=== PATIENT | female | born 1970 | race Hispanic/Latino ===

== ENCOUNTER 2021-10-02 18:08 | Emergency (ER) | payer MEDICARE ==
[2021-10-03 05:06] VITALS: BP 138/65
== END 2021-10-03 05:59 | disposition home or self-care (01) ==
LOC: ED 18:08
DX: R11.0 Nausea (principal); R53.1 Weakness; Z53.21 Procedure and treatment not carried out due to patient leaving prior to being seen by health care provider
CPT/HCPCS: 99282

== ENCOUNTER 2021-10-05 15:08 | Emergency (ER) | payer MEDICARE ==
[2021-10-05 17:00] VITALS: BP 128/94
[2021-10-05] MEDS ORDERED: IPRATROPIUM/ALBUTEROL SULFATE 3 ML AMPUL.NEB IH ONE (17:22)
--- NOTE | 2021-10-05 17:48 | XRay Report ---
CHEST 2 VIEWS INDICATION / CLINICAL INFORMATION: SOB. COMPARISON: None available. FINDINGS: SUPPORT DEVICES: None. HEART / MEDIASTINUM: No significant abnormality. LUNGS / PLEURA: No significant pulmonary or pleural abnormality. No pneumothorax. ADDITIONAL FINDINGS: Thoracic spinal CORD stimulator noted. IMPRESSION: 1. No acute findings. Signer Name: Eitan Wilcox MD Signed: 10/05/2021 5:44 PM Workstation Name: [id number]
--- NOTE | 2021-10-05 21:17 | Emergency Department Report ---
ED General Adult HPI - General Chief complaint: Dyspnea/Respdistress Stated complaint: SOB Time Seen by Provider: 10/05/21 21:07 Source: patient Mode of arrival: Ambulatory Limitations: No Limitations - History of Present Illness Initial comments: reports continued cough and congestion but has not been able to use the albuterol due to her machine breaking. C/o continued productive cough. no chest pain or dizziness. no lower extremity swelling. does experience bladder leakage with coughing spells. -: Gradual Severity scale (0 -10): 0 Associated Symptoms: cough. denies: confusion, fever/chills, loss of appetite, malaise, nausea/vomiting, shortness of breath, syncope, weakness - Related Data Previous Rx's Medication Instructions Recorded Last Taken Type ALBUTEROL NEB's [Proventil 0.083% 2.5 mg IH TID PRN #30 neb 10/03/21 Unknown Rx NEBS] Azithromycin [Zithromax] 500 mg PO QDAY #5 tablet 10/03/21 Unknown Rx Benzonatate [Tessalon Perles] 100 mg PO Q8HR #20 capsule 10/03/21 Unknown Rx Albuterol Mdi (or & Nicu Only) 2 puff IH QID PRN #8.5 gram 10/05/21 Unknown Rx [ProAir HFA Inhaler] predniSONE [Deltasone] 20 mg PO QDAY #5 tab 10/05/21 Unknown Rx Allergies Allergy/AdvReac Type Severity Reaction Status Date / Time No Known Allergies Allergy Verified 10/05/21 17:00 ED Review of Systems ROS: Stated complaint: SOB Other details as noted in HPI Comment: All other systems reviewed and negative ED Past Medical Hx - Medications Home Medications: Home Medications Medication Instructions Recorded Confirmed Last Taken Type ALBUTEROL NEB's [Proventil 0.083% 2.5 mg IH TID PRN #30 neb 10/03/21 Unknown Rx NEBS] Azithromycin [Zithromax] 500 mg PO QDAY #5 tablet 10/03/21 Unknown Rx Benzonatate [Tessalon Perles] 100 mg PO Q8HR #20 capsule 10/03/21 Unknown Rx Albuterol Mdi (or & Nicu Only) 2 puff IH QID PRN #8.5 gram 10/05/21 Unknown Rx [ProAir HFA Inhaler] predniSONE [Deltasone] 20 mg PO QDAY #5 tab 10/05/21 Unknown Rx ED Physical Exam - General Limitations: No Limitations General appearance: alert, in no apparent distress - Head Head exam: Present: atraumatic, normocephalic - Eye Eye exam: Present: normal appearance, PERRL, EOMI - ENT ENT exam: Present: normal exam, normal orophraynx, mucous membranes moist - Neck Neck exam: Present: normal inspection - Respiratory Respiratory exam: Present: normal lung sounds bilaterally. Absent: respiratory distress - Cardiovascular Cardiovascular Exam: Present: regular rate, normal rhythm. Absent: systolic murmur, diastolic murmur, rubs, gallop - GI/Abdominal GI/Abdominal exam: Present: soft, normal bowel sounds - Extremities Exam Extremities exam: Present: normal inspection - Back Exam Back exam: Present: normal inspection - Neurological Exam Neurological exam: Present: alert, oriented X3 - Psychiatric Psychiatric exam: Present: normal affect, normal mood - Skin Skin exam: Present: warm, dry, intact, normal color. Absent: rash ED Course Vital Signs 10/05/21 16:57 Temperature 98.5 F Pulse Rate 79 Respiratory 20 Rate Blood Pressure 128/94 [Right] O2 Sat by Pulse 97 Oximetry Critical care attestation.: If time is entered above; I have spent that time in minutes in the direct care of this critically ill patient, excluding procedure time. ED Disposition Disposition: 01 HOME / SELF CARE / HOMELESS Condition: Stable Instructions: Cool Mist Vaporizer, Cough, Adult, [id number], How to Use a Dry Powder Inhaler, [id number], Acute Bronchitis, Adult, Chronic Bronchitis (ED) Prescriptions: predniSONE [Deltasone] 20 mg PO QDAY #5 tab Albuterol Mdi (or & Nicu Only) [ProAir HFA Inhaler] 2 puff IH QID PRN #8.5 gram PRN Reason: Shortness Of Breath Referrals: [facility] [Provider Group] - 3-5 Days [facility] [Outside] - 3-5 Days
--- NOTE | 2021-10-06 10:36 | Electrocardiograph Report ---
[facility] Test Date: 2021-10-05 Test Time: 17:02:45 Pat Name: HARPER DUNCAN Department: Room: Gender: F [employer] Information Clerk: WES : 1970 Requested By: KARLA WELLER Order Number: [id number] Reading MD: Jony Prieto Measurements Intervals [place] Rate: 63 P: 29 AK: 146 QRS: -14 QRSD: 103 T: 5 QT: 453 QTc: 465 Interpretive Statements Sinus rhythm No previous ECG available for comparison Electronically Signed On 10-06-2021 10:35:24 EDT by Jony Prieto
== END 2021-10-05 21:50 | disposition home or self-care (01) ==
LOC: ED 15:08
DX: R06.02 Shortness of breath (principal); R05.9 Cough, unspecified
CPT/HCPCS: 71046; 93005; 99283

== ENCOUNTER 2021-10-24 07:19 | Emergency (ER) | payer MEDICARE ==
[2021-10-24 07:33] VITALS: BP 122/56
--- NOTE | 2021-10-24 08:16 | Emergency Department Report ---
ED General Adult HPI - General Chief complaint: Extremity Injury, Upper Stated complaint: LEFT THUMB PAIN, ASTHMA Time Seen by Provider: 10/24/21 07:58 Source: patient Mode of arrival: Ambulatory Limitations: No Limitations - History of Present Illness Initial comments: Patient 51-year-old female who presents for left thumb pain x9 years. Patient has history of asthma states she worked at [employer] and had chronic thumb pain. Pain described at 3/10 intermittently. There is no swelling no laceration no deformity noted. However pain is exacerbated by movement and change in weather. Patient states out of asthma medications generally controlled with Symbicort daily, albuterol as needed. Patient denies shortness of breath no wheezing no fevers no cough at this time. Patient denies other complaint. Severity scale (0 -10): 9 - Related Data Previous Rx's Medication Instructions Recorded Last Taken Type ALBUTEROL NEB's [Proventil 0.083% 2.5 mg IH TID PRN #30 neb 10/03/21 Unknown Rx NEBS] Azithromycin [Zithromax] 500 mg PO QDAY #5 tablet 10/03/21 Unknown Rx Benzonatate [Tessalon Perles] 100 mg PO Q8HR #20 capsule 10/03/21 Unknown Rx Albuterol Mdi (or & Nicu Only) 2 puff IH QID PRN #8.5 gram 10/05/21 Unknown Rx [ProAir HFA Inhaler] predniSONE [Deltasone] 20 mg PO QDAY #5 tab 10/05/21 Unknown Rx Albuterol Mdi (or & Nicu Only) 2 puff IH Q6H PRN #8.5 gram 10/24/21 Unknown Rx [ProAir HFA Inhaler] Budesonide/Formoterol Fumarate 2 puff IH BID #1 each 10/24/21 Unknown Rx [Symbicort 80-4.5 Mcg Inhaler] Ibuprofen [Motrin 800 MG tab] 800 mg PO Q8HR PRN #30 tablet 10/24/21 Unknown Rx Allergies Allergy/AdvReac Type Severity Reaction Status Date / Time No Known Allergies Allergy Verified 10/24/21 07:29 ED Review of Systems ROS: Stated complaint: LEFT THUMB PAIN, ASTHMA Other details as noted in HPI Constitutional: denies: chills, fever Eyes: denies: eye pain, eye discharge, vision change ENT: denies: ear pain, throat pain Respiratory: denies: cough, shortness of breath, wheezing Cardiovascular: denies: chest pain, palpitations Endocrine: no symptoms reported Gastrointestinal: denies: abdominal pain, nausea, vomiting, diarrhea Genitourinary: denies: urgency, dysuria, discharge Musculoskeletal: arthralgia (Left thumb). denies: back pain, joint swelling Skin: denies: rash, lesions Neurological: denies: headache, weakness, paresthesias, vertigo Psychiatric: denies: anxiety, depression Hematological/Lymphatic: denies: easy bleeding, easy bruising ED Past Medical Hx - Past Medical History Hx of Cancer: Yes Additional medical history: thyroid/ kidney/ back - Medications Home Medications: Home Medications Medication Instructions Recorded Confirmed Last Taken Type ALBUTEROL NEB's [Proventil 0.083% 2.5 mg IH TID PRN #30 neb 10/03/21 Unknown Rx NEBS] Azithromycin [Zithromax] 500 mg PO QDAY #5 tablet 10/03/21 Unknown Rx Benzonatate [Tessalon Perles] 100 mg PO Q8HR #20 capsule 10/03/21 Unknown Rx Albuterol Mdi (or & Nicu Only) 2 puff IH QID PRN #8.5 gram 10/05/21 Unknown Rx [ProAir HFA Inhaler] predniSONE [Deltasone] 20 mg PO QDAY #5 tab 10/05/21 Unknown Rx Albuterol Mdi (or & Nicu Only) 2 puff IH Q6H PRN #8.5 gram 10/24/21 Unknown Rx [ProAir HFA Inhaler] Budesonide/Formoterol Fumarate 2 puff IH BID #1 each 10/24/21 Unknown Rx [Symbicort 80-4.5 Mcg Inhaler] Ibuprofen [Motrin 800 MG tab] 800 mg PO Q8HR PRN #30 tablet 10/24/21 Unknown Rx ED Physical Exam - General Limitations: No Limitations General appearance: alert, in no apparent distress - Head Head exam: Present: normocephalic, normal inspection - Eye Eye exam: Present: EOMI Pupils: Present: normal accommodation - ENT ENT exam: Present: mucous membranes moist - Neck Neck exam: Present: normal inspection, full ROM. Absent: tenderness - Respiratory Respiratory exam: Present: normal lung sounds bilaterally. Absent: respiratory distress, wheezes, stridor, chest wall tenderness - Cardiovascular Cardiovascular Exam: Present: regular rate, normal rhythm, normal heart sounds. Absent: systolic murmur, diastolic murmur, rubs, gallop - GI/Abdominal GI/Abdominal exam: Present: soft - Rectal Rectal exam: Present: deferred - Extremities Exam Extremities exam: Present: normal inspection, full ROM, normal capillary refill. Absent: joint swelling - Expanded Upper Extremity Exam Left Hand Wrist exam: Present: full ROM. Absent: tenderness, swelling, abrasion, ecchymosis, deformity, crepidus, dislocation, erythema, amputation, nail avulsion, subungual hematoma Neuro motor exam: Present: wrist extension intact, thumb opposition intact, thumb IP flexion intact, thumb adduction intact, fingers 2-5 abduction intact Neurosensory exam: Present: radial nerve intact Vascular: Present: normal capillary refill - Back Exam Back exam: Present: normal inspection, full ROM. Absent: CVA tenderness (R), CVA tenderness (L) - Neurological Exam Neurological exam: Present: alert, oriented X3 - Psychiatric Psychiatric exam: Present: normal affect, normal mood - Skin Skin exam: Present: warm, dry, intact, normal color. Absent: rash ED Course Vital Signs 10/24/21 07:32 Temperature 98.6 F Pulse Rate 102 H Respiratory 18 Rate Blood Pressure 122/56 [Right] O2 Sat by Pulse 98 Oximetry ED Medical Decision Making - Medical Decision Making Lung sounds are clear throughout respirations are even and nonlabored, left lung exam is normal distal pulses intact no pain with simulated axial thumb loading. There are 2 less than 3 seconds this is likely chronic pain. Refill albuterol and Symbicort, NSAIDs as needed pain, follow-up primary care doctor in 2 to 3 days. Return to emergency department if symptoms worsen. Verbalize agreement and understanding of discharge plan. Patient DC'd home in stable condition at this time. Critical care attestation.: If time is entered above; I have spent that time in minutes in the direct care of this critically ill patient, excluding procedure time. ED Disposition Clinical Impression: History of asthma Arthralgia Qualifiers: Joint pain location: hand Laterality: left Qualified Code(s): M25.542 - Pain in joints of left hand Disposition: HOME / SELF CARE / HOMELESS Is pt being admited?: No Does the pt Need Aspirin: No Condition: Stable Instructions: Musculoskeletal Pain, Asthma, Adult Additional Instructions: Take medication as prescribed, follow-up with your doctor in 2 to 3 days. Return to emergency department if symptoms worsen. Prescriptions: Ibuprofen [Motrin 800 MG tab] 800 mg PO Q8HR PRN #30 tablet PRN Reason: Pain Albuterol Mdi (or & Nicu Only) [ProAir HFA Inhaler] 2 puff IH Q6H PRN #8.5 gram PRN Reason: Shortness Of Breath Budesonide/Formoterol Fumarate [Symbicort 80-4.5 Mcg Inhaler] 2 puff IH BID #1 each Referrals: RENUKA CORRALES MD [Staff Physician] - 3-5 Days Forms: Work/School Release Form(ED) Time of Disposition: 08:19
[2021-10-24] MEDS ORDERED: IBUPROFEN 800 MG TAB PO ONE (08:20)
== END 2021-10-24 08:44 | disposition home or self-care (01) ==
LOC: ED 07:19
DX: M25.542 Pain in joints of left hand (principal); J45.909 Unspecified asthma, uncomplicated; Z79.899 Other long term (current) drug therapy
CPT/HCPCS: 99282